=== PATIENT | female | born 1955 | race Caucasian/White ===

== ENCOUNTER 2017-08-28 19:29 | Emergency (ER) | payer BC ==
[~2017-08-28] VITALS: Ht 160 cm; Wt 86.5 kg
[2017-08-28 20:01] VITALS: Ht 160 cm; Wt 86.5 kg
[2017-08-28] MEDS ORDERED: SOD CHLORIDE 0.9% 500 ML IV STA (22:07)
--- NOTE | 2017-08-28 22:58 | RADRPT ---
PROCEDURE: XR Chest. CLINICAL INDICATION: Chest pain. TECHNIQUE: Single frontal view. COMPARISON: None. FINDINGS: The lungs are clear. The heart size is normal. There is no pleural effusion. There is no pneumothorax. IMPRESSION: 1. Normal chest radiograph. RPTAT: QQ .Guicho Singleton MD, Date Time Electronically viewed and signed by .Guicho Singleton MD, on 08/28/2017 22:58 .R/
[2017-08-28 23:09] LABS: ABNORMAL IP MESSAGE 1; BASOPHILS % 0.6 % (0.0-2.0); EOSINOPHILS # 0.2 10^3/ul (0.0-0.5); EOSINOPHILS % 6.6 % (0.0-7.0); HEMATOCRIT 40.8 % (37.0-47.0); HEMOGLOBIN 14.1 g/dl (12.0-16.0); LYMPHOCYTES # 1.3 10^3/ul (0.8-2.9); LYMPHOCYTES % 35.9 % (15.0-51.0); MEAN CORPUSCULAR HEMOGLOBIN 31.8 pg (29.0-33.0); MEAN CORPUSCULAR HGB CONC 34.6 g/dl (32.0-37.0); MEAN CORPUSCULAR VOLUME 91.9 fl (82.0-101.0); MEAN PLATELET VOLUME 10.2 fl (7.4-10.4); MONOCYTE # 0.5 10^3/ul (0.3-0.9); MONOCYTES % 12.8 % (0.0-11.0); NEUTROPHIL # 1.5 10^3/ul (1.6-7.5); NEUTROPHILS % 43.8 % (39.0-77.0); RED BLOOD COUNT 4.44 10^6/ul (4.20-5.40); RED CELL DISTRIBUTION WIDTH 14.5 % (11.5-14.5); WHITE BLOOD COUNT 3.5 10^3/ul (4.8-10.8)
[2017-08-28 23:21] LABS: POSITIVE DIFF @See below
[2017-08-28 23:30] LABS: ALANINE AMINOTRANSFERASE 37 IU/L (13-69); ALBUMIN 3.4 g/dl (3.3-4.9); ALBUMIN/GLOBULIN RATIO 0.89; ALKALINE PHOSPHATASE 139 IU/L (42-121); ANION GAP 10 (8-16); ASPARTATE AMINO TRANSFERASE 40 IU/L (15-46); BILIRUBIN,INDIRECT 1.5 mg/dl (0-1.1); BILIRUBIN,TOTAL 1.5 mg/dl (0.2-1.3); BLOOD UREA NITROGEN 10 mg/dl (7-20); CARBON DIOXIDE 24 mmol/L (21-31); CHLORIDE 113 mmol/L (97-110); CREATININE 0.76 mg/dl (0.44-1.00); GLUCOSE 107 mg/dl (70-220); POTASSIUM 4.1 mmol/L (3.5-5.1); SODIUM 143 mmol/L (135-144); TOTAL PROTEIN 7.2 g/dl (6.1-8.1)
[2017-08-28 23:41] LABS: PLATELET COUNT 63 10^3/UL (140-415)
[2017-08-28 23:43] LABS: B-TYPE NATRIURETIC PEPTIDE 37 PG/ML (0-125)
[2017-08-28 23:48] LABS: TROPONIN-I < 0.012 ng/ml (0.00-0.12)
--- NOTE | 2017-08-29 00:52 | ERD ---
ER Documentation Chief Complaint Date/Time DATE: 08/29/17 TIME: 00:51 Chief Complaint CP and dizziness; not in distress; pt somnolent; not in distress HPI Next 1-year-old female comes in with complaints of feeling dizzy over the past 3 weeks. She says she had alternating reports telling her that she either has cancer or does not have cancer. Patient does associate with normal bone marrow biopsy. Per daughter, patient has been very stressed and depressed lately. Denies suicidal homicidal ideation. Denies auditory or visual hallucinations. ROS All systems reviewed and are negative except as per history of present illness. Allergies Allergies: Coded Allergies: iodine (Verified Allergy, Unknown, 08/28/17) PMhx/Soc History of Surgery: Yes (LITHOTRIPSY) Hx Alcohol Use: No Hx Substance Use: No Hx Tobacco Use: Yes Smoking Status: Light tobacco smoker Physical Exam Vitals Vital Signs Date Time Temp Pulse Resp B/P Pulse Ox O2 Delivery O2 Flow Rate FiO2 08/28/17 23:29 97.7 58 15 100/64 98 Room Air 08/28/17 23:02 62 17 100/60 97 08/28/17 21:30 98.1 59 17 121/60 96 Room Air 08/28/17 20:01 97.9 60 20 119/57 97 Physical Exam Const: [] Head: Atraumatic Eyes: Normal Conjunctiva ENT: Normal External Ears, Nose and Mouth. Neck: Full range of motion..~ No meningismus. Resp: Clear to auscultation bilaterally Cardio: Regular rate and rhythm, no murmurs Abd: Soft, non tender, non distended. Normal bowel sounds Skin: No petechiae or rashes Back: No midline or flank tenderness Ext: No cyanosis, or edema Neur: Awake and alert Psych: Normal Mood and Affect Result Diagram: 08/28/17224908/28/172249 Results 24 hrs Laboratory Tests Test 08/28/17 22:50 White Blood Count 3.510^3/ul Red Blood Count 4.4410^6/ul Hemoglobin 14.1g/dl Hematocrit 40.8% Mean Corpuscular Volume 91.9fl Mean Corpuscular Hemoglobin 31.8pg Mean Corpuscular Hemoglobin Concent 34.6g/dl Red Cell Distribution Width 14.5% Platelet Count 6310^3/UL Mean Platelet Volume 10.2fl Neutrophils % 43.8% Lymphocytes % 35.9% Monocytes % 12.8% Eosinophils % 6.6% Basophils % 0.6% Nucleated Red Blood Cells % 0.0/100WBC Neutrophils # 1.510^3/ul Lymphocytes # 1.310^3/ul Monocytes # 0.510^3/ul Eosinophils # 0.210^3/ul Basophils # 0.010^3/ul Nucleated Red Blood Cells # 0.010^3/ul Sodium Level 143mmol/L Potassium Level 4.1mmol/L Chloride Level 113mmol/L Carbon Dioxide Level 24mmol/L Anion Gap 10 Blood Urea Nitrogen 10mg/dl Creatinine 0.76mg/dl Glucose Level 107mg/dl Calcium Level 11.0mg/dl Total Bilirubin 1.5mg/dl Direct Bilirubin 0.00mg/dl Indirect Bilirubin 1.5mg/dl Aspartate Amino Transf (AST/SGOT) 40IU/L Alanine Aminotransferase (ALT/SGPT) 37IU/L Alkaline Phosphatase 139IU/L Troponin I < 0.012ng/ml B-Type Natriuretic Peptide 37PG/ML Total Protein 7.2g/dl Albumin 3.4g/dl Globulin 3.80g/dl Albumin/Globulin Ratio 0.89 Current Medications Medications (Trade) Dose Ordered Sig/Guillaume Route PRN Reason Start Time Stop Time Status Last Admin Dose Admin Sodium Chloride (NS) 500 ml @ 500 mls/hr Q1H STAT IV 08/28/17 22:07 08/28/17 23:06 DC 08/28/17 23:01 Procedures/MDM EKG: Rate/Rhythm: [Normal Sinus Rhythm] QRS, ST, T-waves: [No changes consistent w/ acute ischemia] Impression: [No evidence of ischemia or arrhythmia] Chest X-ray 1V Interpreted by me: Soft Tissue: No acute abnormalities Bones: No acute abnormalities Mediastinum/Cardiac Silhouette/Lungs: [No acute abnormalities] Medical decision-makin 1-year-old female has symptomology consistent with depression. At this point I do not feel there is any medical reason it. At this point is clinically stable for outpatient management. Patient will be discharged home and started on Lexapro. Advised to follow-up with psychiatry. Return for any worsening of symptoms. Departure Diagnosis: Primary Impression: Dizziness Condition: Stable FLOWER MARLEY Aug 29, 2017 00:52
[2017-08-29] MEDS ORDERED: ESCI10TA PO (00:53)
[2017-08-29] MEDS ORDERED: PRED5TAB PO (01:13)
[2017-08-29] MEDS ORDERED: CALC-277 PO (01:13)
[2017-08-29] MEDS ORDERED: MULTI PO (01:13)
[2017-08-29] MEDS ORDERED: FOLI-49 PO (01:13)
[2017-08-29 01:17] VITALS: BP 116/55; PULSE 61; RESP 19; TEMP 98
== END 2017-08-29 01:17 | disposition home or self-care (01) ==
LOC: E/R 19:29
DX: R42 Dizziness and giddiness (principal); F17.210 Nicotine dependence, cigarettes, uncomplicated
CPT/HCPCS: 36415; 71010; 80053; 83880; 84484; 85025; 93005; J7040; Z7502